=== PATIENT | female | born 2000 | race Caucasian/White ===

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

== ENCOUNTER 2021-01-04 19:42 | Emergency (ER) | payer OTHER ==
[2021-01-04 20:02] VITALS: TEMP 98.1
[2021-01-04] MEDS ORDERED: SODIUM CHLORIDE 0.9% 1,000 ML IV STA (20:14)
[2021-01-04] MEDS ORDERED: MORPHINE SULFATE 2 MG/ML SYRINGE IVP STA (20:14)
[2021-01-04] MEDS ORDERED: ONDANSETRON 4 MG/2 ML VIAL IVP STA (20:14)
[2021-01-04 20:50] VITALS: RESP 16
[2021-01-04 20:59] LABS: Basophils # (A) 0.1 k/uL (0-0.2); Basophils % (A) 1 %; Eosinophils # (A) 0.2 k/uL (0-0.7); Eosinophils % (A) 2 %; HCT 37.7 % (34.0-46.0); HGB 13.1 gm/dL (11.4-16.0); Lymphocytes # (A) 2.7 k/uL (1.0-4.8); Lymphocytes % (A) 30 %; MCH 30.6 pg (25.0-35.0); MCHC 34.7 g/dL (31.0-37.0); MCV 88.2 fL (80.0-100.0); Mean Platelet Volume 7.1; Monocytes # (A) 0.5 k/uL (0-1.0); Monocytes % (A) 6 %; Neutrophils # (A) 5.4 k/uL (1.3-7.7); Neutrophils % (A) 61 %; Platelet Count 308 k/uL (150-450); RBC 4.28 m/uL (3.80-5.40); RDW 12.8 % (11.5-15.5)
[2021-01-04 21:01] LABS: Appearance,Urine Clear (Clear); Bacteria,Urine Rare /hpf; Bilirubin,Urine Negative (Negative); Blood,Urine Moderate (Negative); Color,Urine Yellow; Glucose,Urine (UA) Negative (Negative); Ketones,Urine Negative (Negative); Leukocyte Esterase,Urine Negative (Negative); Mucus,Urine Occasional /hpf; Nitrite,Urine Negative (Negative); PH, Urine 6.5 (5.0-8.0); Protein,Urine Negative (Negative); RBC,Urine 1 /hpf (0-5); Specific Gravity,Urine 1.024 (1.001-1.035); Squamous Epithelial Cell,Urine 1 /hpf (0-4); Urobilinogen,Urine <2.0 mg/dL (<2.0); WBC,Urine 2 /hpf (0-5)
[2021-01-04 21:09] LABS: ALT 12 U/L (4-34); AST 32 U/L (14-36); African American GFR (CKD) >90 (>60 ml/min/1.73 sqM); Albumin 4.7 g/dL (3.5-5.0); Alkaline Phosphatase 64 U/L (38-126); Anion Gap 10 mmol/L; Blood Urea Nitrogen 10 mg/dL (7-17); Calcium 9.5 mg/dL (8.4-10.2); Carbon Dioxide 27 mmol/L (22-30); Chloride 103 mmol/L (98-107); Glucose 107 mg/dL (74-99); Lipase 144 U/L (23-300); Non-African American GFR(CKD) >90 (>60 ml/min/1.73 sqM); Potassium 4.1 mmol/L (3.5-5.1); Sodium 140 mmol/L (137-145); Total Bilirubin 0.5 mg/dL (0.2-1.3); Total Protein 7.4 g/dL (6.3-8.2)
--- NOTE | 2021-01-04 21:38 | ED ---
General Adult HPI - General Chief complaint: Abdominal Pain Stated complaint: ABD pain Time Seen by Provider: 01/04/21 20:09 Source: patient Mode of arrival: ambulatory Limitations: no limitations - History of Present Illness Initial comments: 20 year-old female patient presents to the emergency department for evaluation of pelvic pain. Patient states the pain started last night while having sex. States that the pain has been constant since. States it is over her lower abdomen. She states she feels a pressure in her low back. States she has been having brownish colored discharge today. States that she is supposed to start her period any time. She is unsure if she may be . States she has had some nausea today without vomiting. Denies any constipation or diarrhea. Patient denies any recent rash, fever, chills, cough, shortness of breath, chest pain, numbness, tingling, dizziness, weakness, hematuria, dysuria, urinary urgency, urinary frequency, headache, visual changes, or any other complaints. - Related Data Home Medications Medication Instructions Recorded Confirmed Acetaminophen Tab [Tylenol] 325 mg PO DAILY PRN 01/04/21 01/04/21 Previous Rx's Medication Instructions Recorded Ibuprofen [Motrin] 600 mg PO Q8HR PRN #30 tab 01/04/21 Allergies Allergy/AdvReac Type Severity Reaction Status Date / Time No Known Allergies Allergy Verified 01/04/21 21:09 Review of Systems ROS Statement: Those systems with pertinent positive or pertinent negative responses have been documented in the HPI. ROS Other: All systems not noted in ROS Statement are negative. 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 Vital signs upon presentation are temperature 98.1F. Pulse 75, respirations 18, blood pressure 112/63, pulse ox 98% on room air.) Eye exam: Present: normal appearance, PERRL, EOMI. Absent: scleral icterus, conjunctival injection, periorbital swelling ENT exam: Present: normal exam, normal oropharynx, mucous membranes moist Respiratory exam: Present: normal lung sounds bilaterally. Absent: respiratory distress, wheezes, rales, rhonchi, stridor Cardiovascular Exam: Present: regular rate, normal rhythm, normal heart sounds. Absent: systolic murmur, diastolic murmur, rubs, gallop, clicks GI/Abdominal exam: Present: soft, tenderness (Right lower quadrant and jesus prapubic tenderness), normal bowel sounds. Absent: distended, guarding, rebound, rigid Back exam: Present: normal inspection. Absent: CVA tenderness (R), CVA tenderness (L) Neurological exam: Present: alert, oriented X3, CN II-XII intact Psychiatric exam: Present: normal affect, normal mood Skin exam: Present: warm, dry, intact, normal color. Absent: rash Course Vital Signs 01/04/21 01/04/21 01/04/21 19:59 20:49 22:02 Temperature 98.1 F Pulse Rate 75 77 86 Respiratory 18 16 16 Rate Blood Pressure 112/63 124/70 115/69 O2 Sat by Pulse 98 100 98 Oximetry 01/04/21 22:58 Temperature 98.1 F Pulse Rate 82 Respiratory 16 Rate Blood Pressure 115/69 O2 Sat by Pulse 100 Oximetry Medical Decision Making - Medical Decision Making 20-year-old female patient percents to the emergency department today for evaluation of pelvic pain started after intercourse yesterday. Physical examination revealed right lower quadrant suprapubic tenderness. Labs reviewed and are unremarkable. No signs of urinary tract infection. Negative test. Ultrasound of the pelvis was obtained and showed right-sided ovarian cyst measuring 4 cm, no evidence of ovarian torsion. I did discuss findings and results with the patient. To be discharged with ibuprofen. Instructed to follow-up with her primary care physician to discuss referral to [facility] as well as repeat ultrasound for follow-up of the cyst. Return parameters were discussed in detail. We discussed specifically signs and symptoms of ovarian torsion. She verbalizes understanding and agrees with this plan. Case discussed with my attending Dr. Todd. - Lab Data Result diagrams: 01/04/21 20:52 01/04/21 20:52 Lab Results 01/04/21 01/04/21 01/04/21 Range/Units 20:52 20:52 20:52 WBC 9.0 (4.0-11.0) k/uL RBC 4.28 (3.80-5.40) m/uL Hgb 13.1 (11.4-16.0) gm/dL Hct 37.7 (34.0-46.0) % MCV 88.2 (80.0-100.0) fL MCH 30.6 (25.0-35.0) pg MCHC 34.7 (31.0-37.0) g/dL RDW 12.8 (11.5-15.5) % Plt Count 308 (150-450) k/uL MPV 7.1 Neutrophils % 61 % Lymphocytes % 30 % Monocytes % 6 % Eosinophils % 2 % Basophils % 1 % Neutrophils # 5.4 (1.3-7.7) k/uL Lymphocytes # 2.7 (1.0-4.8) k/uL Monocytes # 0.5 (0-1.0) k/uL Eosinophils # 0.2 (0-0.7) k/uL Basophils # 0.1 (0-0.2) k/uL Sodium (137-145) mmol/L Potassium (3.5-5.1) mmol/L Chloride (98-107) mmol/L Carbon Dioxide (22-30) mmol/L Anion Gap mmol/L BUN (7-17) mg/dL Creatinine (0.52-1.04) mg/dL Est GFR (CKD-EPI)AfAm (>60 ml/min/1.73 sqM) Est GFR (CKD-EPI)NonAf (>60 ml/min/1.73 sqM) Glucose (74-99) mg/dL Calcium (8.4-10.2) mg/dL Total Bilirubin (0.2-1.3) mg/dL AST (14-36) U/L ALT (4-34) U/L Alkaline Phosphatase (38-126) U/L Total Protein (6.3-8.2) g/dL Albumin (3.5-5.0) g/dL Lipase (23-300) U/L Urine Color Yellow Urine Appearance Clear (Clear) Urine pH 6.5 (5.0-8.0) Ur Specific [place] 1.024 (1.001-1.035) Urine Protein Negative (Negative) Urine Glucose (UA) Negative (Negative) Urine Ketones Negative (Negative) Urine Blood Moderate H (Negative) Urine Nitrite Negative (Negative) Urine Bilirubin Negative (Negative) Urine Urobilinogen <2.0 (<2.0) mg/dL Ur Leukocyte Esterase Negative (Negative) Urine RBC 1 (0-5) /hpf Urine WBC 2 (0-5) /hpf Ur Squamous Epith Cells 1 (0-4) /hpf Urine Bacteria Rare H (None) /hpf Urine Mucus Occasional H (None) /hpf Urine HCG, Qual Not Detected (Not Detectd) 01/04/21 Range/Units 20:52 WBC (4.0-11.0) k/uL RBC (3.80-5.40) m/uL Hgb (11.4-16.0) gm/dL Hct (34.0-46.0) % MCV (80.0-100.0) fL MCH (25.0-35.0) pg MCHC (31.0-37.0) g/dL RDW (11.5-15.5) % Plt Count (150-450) k/uL MPV Neutrophils % % Lymphocytes % % Monocytes % % Eosinophils % % Basophils % % Neutrophils # (1.3-7.7) k/uL Lymphocytes # (1.0-4.8) k/uL Monocytes # (0-1.0) k/uL Eosinophils # (0-0.7) k/uL Basophils # (0-0.2) k/uL Sodium 140 (137-145) mmol/L Potassium 4.1 (3.5-5.1) mmol/L Chloride 103 (98-107) mmol/L Carbon Dioxide 27 (22-30) mmol/L Anion Gap 10 mmol/L BUN 10 (7-17) mg/dL Creatinine 0.76 (0.52-1.04) mg/dL Est GFR (CKD-EPI)AfAm >90 (>60 ml/min/1.73 sqM) Est GFR (CKD-EPI)NonAf >90 (>60 ml/min/1.73 sqM) Glucose 107 H (74-99) mg/dL Calcium 9.5 (8.4-10.2) mg/dL Total Bilirubin 0.5 (0.2-1.3) mg/dL AST 32 (14-36) U/L ALT 12 (4-34) U/L Alkaline Phosphatase 64 (38-126) U/L Total Protein 7.4 (6.3-8.2) g/dL Albumin 4.7 (3.5-5.0) g/dL Lipase 144 (23-300) U/L Urine Color Urine Appearance (Clear) Urine pH (5.0-8.0) Ur Specific [place] (1.001-1.035) Urine Protein (Negative) Urine Glucose (UA) (Negative) Urine Ketones (Negative) Urine Blood (Negative) Urine Nitrite (Negative) Urine Bilirubin (Negative) Urine Urobilinogen (<2.0) mg/dL Ur Leukocyte Esterase (Negative) Urine RBC (0-5) /hpf Urine WBC (0-5) /hpf Ur Squamous Epith Cells (0-4) /hpf Urine Bacteria (None) /hpf Urine Mucus (None) /hpf Urine HCG, Qual (Not Detectd) - Radiology Data Radiology results: report reviewed, image reviewed Ultrasound of the pelvis was obtained report reviewed in its entirety. Impression by Dr. Stringer shows complex right ovarian cyst. There is mild free fluid in the cul-de-sac. No evidence of ovarian torsion. Normal uterus and endometrium. Disposition Clinical Impression: Right ovarian cyst Disposition: HOME SELF-CARE Condition: Good Instructions (If sedation given, give patient instructions): Ovarian Cyst (ED) Additional Instructions: Rest. Take medication as directed. Follow up with your primary care physician for recheck in 1-2 days. Discuss referral to OBGYN and repeat ultrasound to evaluate the cyst. Return for any new, worsening, or concerning symptoms. Prescriptions: Ibuprofen [Motrin] 600 mg PO Q8HR PRN #30 tab PRN Reason: Pain Is patient prescribed a controlled substance at d/c from ED?: No Referrals: Sandy Sapp DO [Primary Care Provider] - 1-2 days Time of Disposition: 22:48
--- NOTE | 2021-01-04 22:07 | US ---
EXAMINATION TYPE: US transvaginal DATE OF EXAM: 01/04/2021 COMPARISON: NONE CLINICAL HISTORY: Pelvic pain started after intercourse. Pelvic pain started after intercourse yester day. G0. TECHNIQUE: Transvaginal (TV). Date of LMP: Unknown. EXAM MEASUREMENTS: Uterus: 8.4 x 4.1 x 3.4 cm Endometrial Stripe: 0.92 cm Right Ovary: 5.4 x 4.8 x 4.2 cm Left Ovary: 3.7 x 1.9 x 1.9 cm 1. Uterus: Anteverted 2. Endometrium: Measures 0.92 cm. 3. Right Ovary: Appears enlarged. Complex area seen measuring 4.3 x 2.8 x 3.1 cm. 4. Left Ovary: Subcentimeter anechoic areas seen. Spectral, color and waveform doppler imaging shows good arterial flow within the ovaries. It was di fficult to show a clear venous waveform within right and left ovary. Limited venous evaluation bilate rally. Venous waveforms not definitely seen. 5. Bilateral Adnexa: Fluid seen in right adnexa measuring 0.8 x 3.3 x 1.2 cm. 6. Posterior cul-de-sac: Fluid seen measuring 1.3 x 1.4 x 2.0 cm. IMPRESSION: There is complex right ovarian cyst. There is mild free fluid in the cul-de-sac. No evidence of ovari an torsion. Normal uterus and endometrium.
[2021-01-04 22:11] VITALS: BP 115/69
[2021-01-04 23:01] VITALS: PULSE 82
== END 2021-01-04 23:01 | disposition home or self-care (01) ==
LOC: EC 19:42
DX: N83.201 Unspecified ovarian cyst, right side (principal)
CPT/HCPCS: 36415; 80053; 83690; 85025; 81001; 81025; 93975; 76830; 99284; 96374; 96375; 96361; J2405; J2270

== ENCOUNTER 2021-06-14 10:30 | Emergency (ER) | payer OTHER ==
[2021-06-14 10:53] VITALS: BP 113/74; PULSE 69; RESP 18; TEMP 98.2
[2021-06-14] MEDS ORDERED: diphenhydrAMINE 50 MG CAP PO STA (11:56)
[2021-06-14] MEDS ORDERED: predniSONE 50 MG TAB PO STA (11:56)
--- NOTE | 2021-06-14 11:59 | ED ---
General Adult HPI - General Chief complaint: Allergic Reaction Stated complaint: Hives Time Seen by Provider: 06/14/21 11:10 Source: patient Mode of arrival: ambulatory Limitations: no limitations - History of Present Illness Initial comments: 20-year-old female presents to the emergency room for a chief complaint of rash. Patient states she woke up with hives today. States they are on her arms and legs and on her neck. Patient denies any swelling of her lips tongue or throat. Patient denies any new detergents or medications. Denies shortness of breath. Patient has not taken anything for hives.Patient has no other complaints at this time including shortness of breath, chest pain, abdominal pain, nausea or vomiting, headache, or visual changes. - Related Data Home Medications Medication Instructions Recorded Confirmed Acetaminophen Tab [Tylenol] 325 mg PO DAILY PRN 01/04/21 01/04/21 Previous Rx's Medication Instructions Recorded Ibuprofen [Motrin] 600 mg PO Q8HR PRN #30 tab 01/04/21 predniSONE 50 mg PO DAILY #4 tablet 06/14/21 Allergies Allergy/AdvReac Type Severity Reaction Status Date / Time No Known Allergies Allergy Verified 06/14/21 10:50 Review of Systems ROS Statement: Those systems with pertinent positive or pertinent negative responses have been documented in the HPI. ROS Other: All systems not noted in ROS Statement are negative. 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 Absent: scleral icterus, conjunctival injection, periorbital swelling ENT exam: Present: normal exam, normal oropharynx (No swelling of the lips tongue or throat.), mucous membranes moist Neck exam: Present: normal inspection, full ROM. Absent: tenderness, meningismus, lymphadenopathy Respiratory exam: Present: normal lung sounds bilaterally. Absent: respiratory distress, wheezes, rales, rhonchi, stridor Cardiovascular Exam: Present: regular rate, normal rhythm, normal heart sounds. Absent: systolic murmur, diastolic murmur, rubs, gallop, clicks GI/Abdominal exam: Present: soft, normal bowel sounds. Absent: distended, tenderness, guarding, rebound, rigid Neurological exam: Present: alert Skin exam: Present: urticaria (Patient has mild urticaria of the arms and legs as well as the neck.) Course Vital Signs 06/14/21 10:51 Temperature 98.2 F Pulse Rate 69 Respiratory 18 Rate Blood Pressure 113/74 O2 Sat by Pulse 98 Oximetry Medical Decision Making - Medical Decision Making Patient has mild urticaria on exam. No angioedema or shortness of breath. Started on Benadryl and prednisone. Denies chance of . Discussed in depth care parameters including staying out of hot showers and baths and following up with her doctor. She will take Benadryl throughout the day if she is not working as well as prednisone. Otherwise will take Claritin. She will return here for any worsening symptoms. Disposition Clinical Impression: Urticaria Disposition: HOME SELF-CARE Condition: Good Instructions (If sedation given, give patient instructions): Urticaria (ED) Additional Instructions: Take Benadryl every 6 hours as needed for itching. If you have to work or drive take Claritin once in the morning instead. Take steroid as directed starting your prescription tomorrow as you were given your first dose today in the emergency room. Follow-up with your doctor. Return to the emergency room for any worsening symptoms such as swelling of the lips or throat. Prescriptions: predniSONE 50 mg PO DAILY #4 tablet Is patient prescribed a controlled substance at d/c from ED?: No Referrals: Iain Dickey MD [REFERRING] - 1-2 days Time of Disposition: 11:57
== END 2021-06-14 12:06 | disposition home or self-care (01) ==
LOC: EC 10:30
DX: L50.9 Urticaria, unspecified (principal); H91.90 Unspecified hearing loss, unspecified ear
CPT/HCPCS: 99283; J7512

== ENCOUNTER 2022-03-09 07:37 | Emergency (ER) | payer OTHER ==
[2022-03-09 07:43] VITALS: TEMP 98.3
--- NOTE | 2022-03-09 08:12 | ED ---
General Adult HPI - General Chief complaint: ENT Stated complaint: Sore throat,Body aches Time Seen by Provider: 03/09/22 07:47 Source: patient, RN notes reviewed, old records reviewed Mode of arrival: ambulatory Limitations: no limitations - History of Present Illness Initial comments: 21-year-old female presenting for evaluation of sore throat. Patient states she's had this case with throat for about 2 months and she has seen her primary care physician and ultrasound has been ordered of the neck this has not been completed yet. She states over the past 24 hours she developed some fever and sore throat and body aches. No significant cough. No chest pain or dyspnea. No abdominal pain. No vomiting. - Related Data Home Medications Medication Instructions Recorded Confirmed Acetaminophen Tab [Tylenol] 325 mg PO DAILY PRN 01/04/21 01/04/21 Previous Rx's Medication Instructions Recorded Ibuprofen [Motrin] 600 mg PO Q8HR PRN #30 tab 01/04/21 predniSONE 50 mg PO DAILY #4 tablet 06/14/21 Allergies Allergy/AdvReac Type Severity Reaction Status Date / Time No Known Allergies Allergy Verified 03/09/22 07:43 Review of Systems ROS Statement: Those systems with pertinent positive or pertinent negative responses have been documented in the HPI. ROS Other: All systems not noted in ROS Statement are negative. 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 Absent: n ormal oropharynx (Erythematous without tonsillar swelling or exudate) Neck exam: Present: normal inspection, lymphadenopathy. Absent: tenderness, meningismus Respiratory exam: Present: normal lung sounds bilaterally. Absent: respiratory distress, wheezes Cardiovascular Exam: Present: regular rate, normal rhythm GI/Abdominal exam: Present: soft. Absent: distended, tenderness, guarding Extremities exam: Present: normal inspection, normal capillary refill. Absent: pedal edema Neurological exam: Present: alert. Absent: motor sensory deficit Psychiatric exam: Present: normal affect, normal mood Skin exam: Present: warm, dry, intact. Absent: cyanosis, diaphoretic Course Vital Signs 03/09/22 07:40 Temperature 98.3 F Pulse Rate 92 Respiratory 15 Rate Blood Pressure 109/66 O2 Sat by Pulse 98 Oximetry Medical Decision Making - Medical Decision Making 21-year-old female with chief complaint of sore throat, body aches or fever. Afebrile here and well-appearing. She does have some mild pharyngeal erythema without tonsillar swelling or exudate. Influenza, Covid and strep testing is all negative. Patient states she had an outpatient order for ultrasound of the neck for some chronic anterior neck pain. I recommend she gets this study. She will follow with her primary care physician regarding this test. Stable for discharge at this time. - Lab Data Lab Results 03/09/22 03/09/22 03/09/22 Range/Units 07:56 07:56 07:56 Coronavirus (PCR) Not Detected (Not Detectd) Influenza Type A RNA Not Detected (Not Detectd) Influenza Type B (PCR) Not Detected (Not Detectd) Group A Strep Rapid Negative (Negative) Disposition Clinical Impression: Pharyngitis Disposition: HOME SELF-CARE Condition: Good Instructions (If sedation given, give patient instructions): Pharyngitis (ED) Is patient prescribed a controlled substance at d/c from ED?: No Referrals: None,Stated [Primary Care Provider] - 1-2 days Peter Stephen MD [REFERRING] - 1-2 days Time of Disposition: 08:46
[2022-03-09 09:00] VITALS: BP 110/72; PULSE 70; RESP 16
== END 2022-03-09 09:00 | disposition home or self-care (01) ==
LOC: EC 07:37
DX: J02.9 Acute pharyngitis, unspecified (principal); Z20.822 Contact with and (suspected) exposure to COVID-19
CPT/HCPCS: 87081; 87430; 87502; 87635; 99284

== ENCOUNTER 2022-03-09 21:24 | Emergency (ER) | payer OTHER ==
[2022-03-09] MEDS ORDERED: ACETAMINOPHEN TAB 500 MG TAB PO STA (23:27)
[2022-03-09] MEDS ORDERED: SODIUM CHLORIDE 0.9% 1,000 ML IV STA (23:27)
[2022-03-09] MEDS ORDERED: IBUPROFEN 600 MG TAB PO STA (23:27)
[2022-03-10 00:49] LABS: Basophils % (A) 0 %; Eosinophils % (A) 0 %; HCT 38.5 % (34.0-46.0); HGB 12.9 gm/dL (11.4-16.0); Lymphocytes # (A) 1.1 k/uL (1.0-4.8); Lymphocytes % (A) 7 %; MCH 29.8 pg (25.0-35.0); MCHC 33.5 g/dL (31.0-37.0); MCV 88.8 fL (80.0-100.0); Mean Platelet Volume 7.5; Monocytes # (A) 0.6 k/uL (0-1.0); Monocytes % (A) 4 %; Neutrophils # (A) 14.2 k/uL (1.3-7.7); Neutrophils % (A) 88 %; Platelet Count 288 k/uL (150-450); RBC 4.33 m/uL (3.80-5.40); RDW 13.4 % (11.5-15.5); WBC 16.1 k/uL (3.8-10.6)
--- NOTE | 2022-03-10 01:05 | XR ---
EXAMINATION TYPE: XR chest 2V DATE OF EXAM: 03/10/2022 COMPARISON: NONE HISTORY: Cough TECHNIQUE: 2 view FINDINGS: Heart and mediastinum are normal. Lungs are clear. Diaphragm is normal. Bony thorax is inta ct. IMPRESSION: Normal chest
[2022-03-10 01:06] LABS: ALT 12 U/L (4-34); AST 24 U/L (14-36); African American GFR (CKD) >90 (>60 ml/min/1.73 sqM); Albumin 4.5 g/dL (3.5-5.0); Alkaline Phosphatase 60 U/L (38-126); Anion Gap 8 mmol/L; Blood Urea Nitrogen 12 mg/dL (7-17); Calcium 9.4 mg/dL (8.4-10.2); Carbon Dioxide 24 mmol/L (22-30); Chloride 104 mmol/L (98-107); Glucose 149 mg/dL (74-99); Non-African American GFR(CKD) >90 (>60 ml/min/1.73 sqM); Potassium 3.8 mmol/L (3.5-5.1); Sodium 136 mmol/L (137-145); Total Bilirubin 0.5 mg/dL (0.2-1.3); Total Protein 7.4 g/dL (6.3-8.2)
--- NOTE | 2022-03-10 01:06 | XR ---
EXAMINATION TYPE: XR soft tissue neck DATE OF EXAM: 03/10/2022 COMPARISON: NONE HISTORY: Sore throat TECHNIQUE: 2 view FINDINGS: Cervical vertebra have normal alignment. Posterior element are intact. No compression fract ure. This spaces are normal. Epiglottis is normal. Tonsils and adenoids appear normal. Subglottic trachea appears normal. IMPRESSION: Normal cervical soft tissue exam.
[2022-03-10] MEDS ORDERED: AMPICILLIN-SULBACTAM 3 GM in SODIUM CHLORIDE 0.9% 100 ML IVPB STA (01:21)
--- NOTE | 2022-03-10 01:29 | ED ---
Fever HPI - General Chief Complaint: Fever Stated Complaint: Fever Time Seen by Provider: 03/09/22 23:24 Source: patient, RN notes reviewed Mode of arrival: ambulatory - History of Present Illness Initial Comments: This is a pleasant 21-year-old female presents back to the ER if she cannot keep her fever down. Patient seen here this morning and had negative COVID-19 and complains attesting. Patient also had an ultrasound of her thyroid due to a sore throat which she has had for some 2 months. Patient states she still has a sore throat. Patient has also had an earache, right ear. Patient has had a fever of 101.2. Ibuprofen prior to arrival. Dry cough. No skin rash or stiff neck. No productive cough. No abdominal pain. No vaginal discharge. No dysuria. No headache, no changes in vision or hearing, no neck pain, no chest pain or shortness of breath, no abdominal pain, no nausea or vomiting, no changes in urination or bowel movements, no numbness or tingling, no extremity pain, no skin rashes or lesions. MD Complaint: fever - Related Data Home Medications Medication Instructions Recorded Confirmed Acetaminophen Tab [Tylenol] 325 mg PO DAILY PRN 01/04/21 01/04/21 Previous Rx's Medication Instructions Recorded Ibuprofen [Motrin] 600 mg PO Q8HR PRN #30 tab 01/04/21 predniSONE 50 mg PO DAILY #4 tablet 06/14/21 Acetaminophen [Tylenol] 500 mg PO Q4-6H PRN #24 tab 03/10/22 Amoxicillin/Potassium Clav 1 each PO Q12HR #20 tab 03/10/22 [Augmentin 875-125 Tablet] Ibuprofen [Motrin Ib] 400 mg PO Q8H PRN #50 tab 03/10/22 Allergies Allergy/AdvReac Type Severity Reaction Status Date / Time No Known Allergies Allergy Verified 03/09/22 07:43 Review of Systems ROS Statement: Those systems with pertinent positive or pertinent negative responses have been documented in the HPI. ROS Other: All systems not noted in ROS Statement are negative. 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 Patient noted to be febrile and somewhat tachycardic in triage. General appearance: alert, in no apparent distress Head exam: Present: atraumatic, normocephalic, normal inspection Eye exam: Present: normal appearance, PERRL, EOMI. Absent: scleral icterus, conjunctival injection, periorbital swelling ENT exam: Present: normal exam, normal oropharynx, mucous membranes moist, normal external ear exam, other (No tonsillar adenopathy or exudate. No evidence of peritonsillar abscess. Airway is patent). Absent: mucous membranes dry, TM's normal bilaterally (Right TM is erythematous and has loss of landmarks. Bulging TM. Left TM is pearly hutchinson with evidence of scarring.) Neck exam: Present: normal inspection, full ROM. Absent: tenderness, meningismus, lymphadenopathy Respiratory exam: Present: normal lung sounds bilaterally. Absent: respiratory distress, wheezes, rales, rhonchi, stridor, chest wall tenderness, accessory muscle use, decreased breath sounds, prolonged expiratory Cardiovascular Exam: Present: normal rhythm, tachycardia, normal heart sounds. Absent: systolic murmur, diastolic murmur, rubs, gallop, clicks GI/Abdominal exam: Present: soft, normal bowel sounds. Absent: distended, tenderness, guarding, rebound, rigid Extremities exam: Present: normal inspection, full ROM, normal capillary refill. Absent: tenderness, pedal edema, joint swelling, calf tenderness Back exam: Present: normal inspection Neurological exam: Present: alert, oriented X3, CN II-XII intact Psychiatric exam: Present: normal affect, normal mood Skin exam: Present: warm, dry, intact, normal color. Absent: rash Course Vital Signs 03/09/22 21:31 Temperature 101.2 F H Pulse Rate 124 H Respiratory 18 Rate Blood Pressure 111/54 O2 Sat by Pulse 99 Oximetry Medical Decision Making - Medical Decision Making Patient has leukocytosis with negative testing for COVID-19 and influenza again. Due to the patient's right-sided otitis media with symptoms and when to cover her with antibiotics. One dose UniSyn was given here. We'll prescribe Augmentin. Patient counseled on treatment plan. Patient will need to take acetaminophen and ibuprofen for fever control. We'll have patient follow-up with both her primary care physician and ear nose and throat she has had previous issues with recurrent ear infections. Patient was told to return to the ER for any signs or symptoms worsen. Told to return immediately if any other problems arise. All questions answered. Treatment plan discussed. Patient in agreement Every effort has been made to ensure accuracy of this dictation. However, due to the limitations of electronic medical records and dictation devices, errors in charting still occur. The case was discussed in detail with ED attending physician. Presentation, findings, treatment plan discussed in detail. Dr. Todd - Lab Data Result diagrams: 03/10/22 00:30 03/10/22 00:30 Lab Results 03/09/22 03/09/22 03/10/22 Range/Units 23:07 23:07 00:30 WBC 16.1 H (3.8-10.6) k/uL RBC 4.33 (3.80-5.40) m/uL Hgb 12.9 (11.4-16.0) gm/dL Hct 38.5 (34.0-46.0) % MCV 88.8 (80.0-100.0) fL MCH 29.8 (25.0-35.0) pg MCHC 33.5 (31.0-37.0) g/dL RDW 13.4 (11.5-15.5) % Plt Count 288 (150-450) k/uL MPV 7.5 Neutrophils % 88 % Lymphocytes % 7 % Monocytes % 4 % Eosinophils % 0 % Basophils % 0 % Neutrophils # 14.2 H (1.3-7.7) k/uL Lymphocytes # 1.1 (1.0-4.8) k/uL Monocytes # 0.6 (0-1.0) k/uL Eosinophils # 0.0 (0-0.7) k/uL Basophils # 0.0 (0-0.2) k/uL Sodium (137-145) mmol/L Potassium (3.5-5.1) mmol/L Chloride (98-107) mmol/L Carbon Dioxide (22-30) mmol/L Anion Gap mmol/L BUN (7-17) mg/dL Creatinine (0.52-1.04) mg/dL Est GFR (CKD-EPI)AfAm (>60 ml/min/1.73 sqM) Est GFR (CKD-EPI)NonAf (>60 ml/min/1.73 sqM) Glucose (74-99) mg/dL Calcium (8.4-10.2) mg/dL Total Bilirubin (0.2-1.3) mg/dL AST (14-36) U/L ALT (4-34) U/L Alkaline Phosphatase (38-126) U/L Total Protein (6.3-8.2) g/dL Albumin (3.5-5.0) g/dL Coronavirus (PCR) Not Detected (Not Detectd) Heterophile Antibody (Negative) Influenza Type A RNA Not Detected (Not Detectd) Influenza Type B (PCR) Not Detected (Not Detectd) 03/10/22 03/10/22 Range/Units 00:30 00:30 WBC (3.8-10.6) k/uL RBC (3.80-5.40) m/uL Hgb (11.4-16.0) gm/dL Hct (34.0-46.0) % MCV (80.0-100.0) fL MCH (25.0-35.0) pg MCHC (31.0-37.0) g/dL RDW (11.5-15.5) % Plt Count (150-450) k/uL MPV Neutrophils % % Lymphocytes % % Monocytes % % Eosinophils % % Basophils % % Neutrophils # (1.3-7.7) k/uL Lymphocytes # (1.0-4.8) k/uL Monocytes # (0-1.0) k/uL Eosinophils # (0-0.7) k/uL Basophils # (0-0.2) k/uL Sodium 136 L (137-145) mmol/L Potassium 3.8 (3.5-5.1) mmol/L Chloride 104 (98-107) mmol/L Carbon Dioxide 24 (22-30) mmol/L Anion Gap 8 mmol/L BUN 12 (7-17) mg/dL Creatinine 0.87 (0.52-1.04) mg/dL Est GFR (CKD-EPI)AfAm >90 (>60 ml/min/1.73 sqM) Est GFR (CKD-EPI)NonAf >90 (>60 ml/min/1.73 sqM) Glucose 149 H (74-99) mg/dL Calcium 9.4 (8.4-10.2) mg/dL Total Bilirubin 0.5 (0.2-1.3) mg/dL AST 24 (14-36) U/L ALT 12 (4-34) U/L Alkaline Phosphatase 60 (38-126) U/L Total Protein 7.4 (6.3-8.2) g/dL Albumin 4.5 (3.5-5.0) g/dL Coronavirus (PCR) (Not Detectd) Heterophile Antibody Negative (Negative) Influenza Type A RNA (Not Detectd) Influenza Type B (PCR) (Not Detectd) Disposition Clinical Impression: Otitis media of right ear, Upper respiratory infection Disposition: HOME SELF-CARE Condition: Good Instructions (If sedation given, give patient instructions): Fever in Adults (ED), Ear Infection (ED) Additional Instructions: Alternate acetaminophen and ibuprofen every 3-4 hours for fever control. Take antibiotics as directed. Make a follow-up appointment with your regular doctor as well as ear nose and throat doctor. Follow-up with your regular physician as directed. Return to the ER immediately if any symptoms worsen, new symptoms arise, or any other problems develop. Is patient prescribed a controlled substance at d/c from ED?: No Referrals: Tano Church MD [STAFF PHYSICIAN] - 03/15/22 Sandhya Negron MD [REFERRING] - 03/15/22 Time of Disposition: 01:26
[2022-03-10 01:48] LABS: Appearance,Urine Clear (Clear); Bilirubin,Urine Negative (Negative); Blood,Urine Negative (Negative); Color,Urine Light Yellow; Glucose,Urine (UA) Negative (Negative); Ketones,Urine 1+ (Negative); Leukocyte Esterase,Urine Negative (Negative); Nitrite,Urine Negative (Negative); PH, Urine 5.5 (5.0-8.0); Protein,Urine Negative (Negative); Urobilinogen,Urine <2.0 mg/dL (<2.0)
[2022-03-10 03:13] VITALS: RESP 15; TEMP 98.8
[2022-03-10 03:55] VITALS: BP 108/65; PULSE 72
== END 2022-03-10 03:25 | disposition home or self-care (01) ==
LOC: EC 21:24
DX: J06.9 Acute upper respiratory infection, unspecified (principal); H66.91 Otitis media, unspecified, right ear; Z20.822 Contact with and (suspected) exposure to COVID-19
CPT/HCPCS: 36415; 80053; 85025; 86308; 81003; 81025; 87502; 87635; 70360; 71046; 96374; 99283; J0295

== ENCOUNTER → 2022-03-09 | Outpatient (CLI) | payer OTHER ==
--- NOTE | 2022-03-09 16:46 | US ---
EXAMINATION TYPE: US thyroid st tissue head/neck DATE OF EXAM: 03/09/2022 COMPARISON: NONE CLINICAL HISTORY: R07.0 PAIN IN THROAT. pain in midline throat for 2 months Soft tissue scan of throat produces no abnormality seen and images saved. No concerning mass or fluid collection. Normal strap muscles noted. IMPRESSION: As above.
== END | disposition home or self-care (01) ==
LOC: RADUSWWP 16:12
PROVIDERS: ATTEND Nurse Practitioner Adult Health
DX: R07.0 Pain in throat (principal)
CPT/HCPCS: 76536

== ENCOUNTER 2022-09-07 19:03 | Emergency (ER) | payer OTHER ==
[2022-09-07 20:00] VITALS: TEMP 98.8
[2022-09-07 20:29] LABS: Basophils # (A) 0.1 k/uL (0-0.2); Basophils % (A) 1 %; Eosinophils # (A) 0.1 k/uL (0-0.7); Eosinophils % (A) 1 %; HCT 35.8 % (34.0-46.0); HGB 12.4 gm/dL (11.4-16.0); Lymphocytes # (A) 1.8 k/uL (1.0-4.8); Lymphocytes % (A) 17 %; MCH 30.2 pg (25.0-35.0); MCHC 34.7 g/dL (31.0-37.0); MCV 86.9 fL (80.0-100.0); Monocytes # (A) 0.4 k/uL (0-1.0); Monocytes % (A) 4 %; Neutrophils # (A) 7.8 k/uL (1.3-7.7); Neutrophils % (A) 76 %; Platelet Count 260 k/uL (150-450); RBC 4.12 m/uL (3.80-5.40); RDW 12.3 % (11.5-15.5); WBC 10.2 k/uL (3.8-10.6)
[2022-09-07 20:40] LABS: African American GFR (CKD) >90 (>60 ml/min/1.73 sqM); Anion Gap 14 mmol/L; Blood Urea Nitrogen 22 mg/dL (7-17); Calcium 9.7 mg/dL (8.4-10.2); Carbon Dioxide 20 mmol/L (22-30); Chloride 103 mmol/L (98-107); Glucose 142 mg/dL (74-99); Non-African American GFR(CKD) 87 (>60 ml/min/1.73 sqM); Potassium 4.1 mmol/L (3.5-5.1); Sodium 137 mmol/L (137-145)
[2022-09-07] MEDS ORDERED: ONDANSETRON 4 MG/2 ML VIAL IVP STA (20:40)
[2022-09-07] MEDS ORDERED: SODIUM CHLORIDE 0.9% 1,000 ML IV ONE (20:40)
[2022-09-07] MEDS ORDERED: KETOROLAC 15 MG/ML 1 ML VIAL IVP STA (20:41)
--- NOTE | 2022-09-07 20:44 | ED ---
Abdominal Pain HPI - General Chief Complaint: Abdominal Pain Stated Complaint: abd pain Time Seen by Provider: 09/07/22 19:58 Source: patient, RN notes reviewed, old records reviewed Mode of arrival: ambulatory Limitations: no limitations - History of Present Illness Initial Comments: 21-year-old female presents to the emergency room with 4 hours of right lower quadrant abdominal pain with 2 episodes of vomiting. She states her last menstrual period was last month and is due to start however she states there is a possibility of . She denies any fevers. Vomited twice undigested food. Denies any marijuana or cigarette use. MD Complaint: abdominal pain -: hour(s) (4) Location: RLQ Radiation: RLQ Severity scale (1-10): 10 Quality: cramping Consistency: constant Improves With: nothing Associated Symptoms: nausea, vomiting (twice) - Related Data LMP (females 10-50): 1 month Home Medications Medication Instructions Recorded Confirmed Acetaminophen Tab [Tylenol] 325 mg PO DAILY PRN 01/04/21 01/04/21 Previous Rx's Medication Instructions Recorded Ibuprofen [Motrin] 600 mg PO Q8HR PRN #30 tab 01/04/21 predniSONE 50 mg PO DAILY #4 tablet 06/14/21 Acetaminophen [Tylenol] 500 mg PO Q4-6H PRN #24 tab 03/10/22 Amoxicillin/Potassium Clav 1 each PO Q12HR #20 tab 03/10/22 [Augmentin 875-125 Tablet] Ibuprofen [Motrin Ib] 400 mg PO Q8H PRN #50 tab 03/10/22 Allergies Allergy/AdvReac Type Severity Reaction Status Date / Time No Known Allergies Allergy Verified 09/07/22 19:17 Review of Systems ROS Statement: Those systems with pertinent positive or pertinent negative responses have been documented in the HPI. ROS Other: All systems not noted in ROS Statement are negative. 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 Absent: scleral icterus, conjunctival injection ENT exam: Present: mucous membranes moist Respiratory exam: Present: normal lung sounds bilaterally. Absent: respiratory distress, wheezes, rales, rhonchi, stridor, chest wall tenderness, accessory muscle use Cardiovascular Exam: Present: regular rate GI/Abdominal exam: Present: soft, tenderness (Right lower quadrant). Absent: distended, guarding, rebound, rigid Extremities exam: Present: normal capillary refill. Absent: pedal edema Back exam: Present: full ROM. Absent: tenderness, CVA tenderness (R), CVA tenderness (L), rash noted Neurological exam: Present: alert, oriented X3 Psychiatric exam: Present: normal affect, normal mood Skin exam: Present: warm, dry, normal color. Absent: cyanosis, diaphoretic, petechiae, pallor Course Vital Signs 09/07/22 09/07/22 19:17 22:57 Temperature 98.8 F Pulse Rate 76 80 Respiratory 16 14 Rate Blood Pressure 116/74 121/78 O2 Sat by Pulse 99 100 Oximetry - Reevaluation(s) Reevaluation #1: 09/07/22 21:29 Urinalysis negative for , no fever or leukocytosis. Patient continues to have right lower quadrant pain with a history of a right ovarian cyst. States her menses is due to start. States pain is worse than previous ovarian cyst pain, also with nausea this time. Ultrasound ordered to rule out torsion Time: 21:29 Medical Decision Making - Medical Decision Making Labs are unremarkable. Urinalysis shows no evidence of infection or . Ultrasound shows no evidence of ovarian torsion. Normal uterus. Mild free fluid in the right adnexal region. Patient states she does have history of a right ovarian cyst. Pain is likely related to a ruptured ovarian cyst. Patient was given IV fluids, zofran and Toradol. States feeling much better. On re-exam there is minimal right lower quadrant abdominal pain that the patient states is improving. She was directed to take Tylenol and/or Motrin along with warm compresses for pain relief. Strict return parameters were discussed with her and her significant other. They are agreeable to discharge. Follow-up with her primary care [employer] next week. Case discussed with Dr. Redman - Lab Data Result diagrams: 09/07/22 20:21 09/07/22 20:21 Lab Results 09/07/22 09/07/22 09/07/22 Range/Units 20:21 20:21 20:58 WBC 10.2 (3.8-10.6) k/uL RBC 4.12 (3.80-5.40) m/uL Hgb 12.4 (11.4-16.0) gm/dL Hct 35.8 (34.0-46.0) % MCV 86.9 (80.0-100.0) fL MCH 30.2 (25.0-35.0) pg MCHC 34.7 (31.0-37.0) g/dL RDW 12.3 (11.5-15.5) % Plt Count 260 (150-450) k/uL MPV 8.0 Neutrophils % 76 % Lymphocytes % 17 % Monocytes % 4 % Eosinophils % 1 % Basophils % 1 % Neutrophils # 7.8 H (1.3-7.7) k/uL Lymphocytes # 1.8 (1.0-4.8) k/uL Monocytes # 0.4 (0-1.0) k/uL Eosinophils # 0.1 (0-0.7) k/uL Basophils # 0.1 (0-0.2) k/uL Sodium 137 (137-145) mmol/L Potassium 4.1 (3.5-5.1) mmol/L Chloride 103 (98-107) mmol/L Carbon Dioxide 20 L (22-30) mmol/L Anion Gap 14 mmol/L BUN 22 H (7-17) mg/dL Creatinine 0.94 (0.52-1.04) mg/dL Est GFR (CKD-EPI)AfAm >90 (>60 ml/min/1.73 sqM) Est GFR (CKD-EPI)NonAf 87 (>60 ml/min/1.73 sqM) Glucose 142 H (74-99) mg/dL Calcium 9.7 (8.4-10.2) mg/dL Urine Color Yellow Urine Appearance Cloudy H (Clear) Urine pH 6.0 (5.0-8.0) Ur Specific [place] 1.031 (1.001-1.035) Urine Protein Trace H (Negative) Urine Glucose (UA) Negative (Negative) Urine Ketones Negative (Negative) Urine Blood Negative (Negative) Urine Nitrite Negative (Negative) Urine Bilirubin Negative (Negative) Urine Urobilinogen <2.0 (<2.0) mg/dL Ur Leukocyte Esterase Negative (Negative) Urine RBC 3 (0-5) /hpf Urine WBC 8 H (0-5) /hpf Ur Squamous Epith Cells 14 H (0-4) /hpf Urine Mucus Occasional H (None) /hpf Urine HCG, Qual (Not Detectd) 09/07/22 Range/Units 20:58 WBC (3.8-10.6) k/uL RBC (3.80-5.40) m/uL Hgb (11.4-16.0) gm/dL Hct (34.0-46.0) % MCV (80.0-100.0) fL MCH (25.0-35.0) pg MCHC (31.0-37.0) g/dL RDW (11.5-15.5) % Plt Count (150-450) k/uL MPV Neutrophils % % Lymphocytes % % Monocytes % % Eosinophils % % Basophils % % Neutrophils # (1.3-7.7) k/uL Lymphocytes # (1.0-4.8) k/uL Monocytes # (0-1.0) k/uL Eosinophils # (0-0.7) k/uL Basophils # (0-0.2) k/uL Sodium (137-145) mmol/L Potassium (3.5-5.1) mmol/L Chloride (98-107) mmol/L Carbon Dioxide (22-30) mmol/L Anion Gap mmol/L BUN (7-17) mg/dL Creatinine (0.52-1.04) mg/dL Est GFR (CKD-EPI)AfAm (>60 ml/min/1.73 sqM) Est GFR (CKD-EPI)NonAf (>60 ml/min/1.73 sqM) Glucose (74-99) mg/dL Calcium (8.4-10.2) mg/dL Urine Color Urine Appearance (Clear) Urine pH (5.0-8.0) Ur Specific [place] (1.001-1.035) Urine Protein (Negative) Urine Glucose (UA) (Negative) Urine Ketones (Negative) Urine Blood (Negative) Urine Nitrite (Negative) Urine Bilirubin (Negative) Urine Urobilinogen (<2.0) mg/dL Ur Leukocyte Esterase (Negative) Urine RBC (0-5) /hpf Urine WBC (0-5) /hpf Ur Squamous Epith Cells (0-4) /hpf Urine Mucus (None) /hpf Urine HCG, Qual Not Detected (Not Detectd) Disposition Clinical Impression: Ovarian cyst Disposition: HOME SELF-CARE Condition: Good Instructions (If sedation given, give patient instructions): Ruptured Ovarian Cyst (ED) Additional Instructions: Tylenol or Motrin as needed for pain. Warm compresses for pain relief. Follow- up with your [employer] primary care doctor is week. Return to emergency room with any new or concerning symptoms including increased pain or fevers. Is patient prescribed a controlled substance at d/c from ED?: No Referrals: None,Stated [Primary Care Provider] - 1-2 days Time of Disposition: 22:45
[2022-09-07 21:23] LABS: Appearance,Urine Cloudy (Clear); Bilirubin,Urine Negative (Negative); Blood,Urine Negative (Negative); Color,Urine Yellow; Glucose,Urine (UA) Negative (Negative); Ketones,Urine Negative (Negative); Leukocyte Esterase,Urine Negative (Negative); Mucus,Urine Occasional /hpf; Nitrite,Urine Negative (Negative); Protein,Urine Trace (Negative); RBC,Urine 3 /hpf (0-5); Specific Gravity,Urine 1.031 (1.001-1.035); Squamous Epithelial Cell,Urine 14 /hpf (0-4); Urobilinogen,Urine <2.0 mg/dL (<2.0); WBC,Urine 8 /hpf (0-5)
--- NOTE | 2022-09-07 22:24 | US ---
EXAMINATION TYPE: US transvaginal DATE OF EXAM: 09/07/2022 COMPARISON: 01/04/21 CLINICAL HISTORY: RLQ pain, r/o torsion. RLQ pain x 3 hours with n/v. G0 TECHNIQUE: . Transvaginal sonographic images of the pelvis were acquired Date of LMP: LMP unknown EXAM MEASUREMENTS: Uterus: 8.6 x 5.1 x 3.3 cm Endometrial Stripe: 0.9 cm Right Ovary: 3.3 x 3.2 x 1.7 cm Left Ovary: 4.8 x 2.9 x 2.2 cm 1. Uterus: Anteverted wnl 2. Endometrium: wnl 3. Right Ovary: wnl 4. Left Ovary: wnl Spectral, color and waveform doppler imaging shows good arterial and venous flow within the ovaries ; there is no evidence for ovarian torsion. 5. Bilateral Adnexa: Free fluid seen in right adnexa 6. Posterior cul-de-sac: Trace amount of free fluid seen IMPRESSION: No evidence of ovarian torsion. Normal uterus. Mild free fluid in the right adnexal region.
[2022-09-07 22:59] VITALS: BP 121/78; PULSE 80; RESP 14
== END 2022-09-07 22:59 | disposition home or self-care (01) ==
LOC: EC 19:03
DX: N83.209 Unspecified ovarian cyst, unspecified side (principal)
CPT/HCPCS: 36415; 80048; 85025; 81001; 81025; 93975; 76830; 99284; 96374; 96375; 96361; J2405; J1885